=== PATIENT | male | born 1990 | race Caucasian/White ===

== ENCOUNTER 2021-12-19 14:13 | Emergency (ER) | payer MEDICAID | END 2021-12-19 18:44 | disposition left against medical advice (07) | LOC: ER 14:14 | DX: M54.9 Dorsalgia, unspecified (principal); Z53.21 Procedure and treatment not carried out due to patient leaving prior to being seen by health care provider ==

== ENCOUNTER 2022-09-09 11:24 | Emergency (ER) | payer MEDICAID, OTHER ==
[~2022-09-09] VITALS: Ht 180.3 cm; Wt 61.4 kg
[2022-09-09 11:26] VITALS: BP 110/79
[2022-09-09 12:22] LABS: CLARITY,URINE CLEAR (Clear); COLOR,URINE YELLOW (Yellow); GLUCOSE, URINE NEGATIVE (Neg); KETONES,URINE 15 mg/dl (Neg); LEUKOCYTE ESTERASE ,URINE NEGATIVE (Neg); NITRITES, URINE NEGATIVE (Neg); OCCULT BLOOD,URINE NEGATIVE (Neg); PROTEIN,URINE NEGATIVE (Neg); UROBILINOGEN,URINE 0.2 E.U/dL (0.2-1.0)
[2022-09-09 12:27] LABS: UA COLLECTION TYPE CLN CATCH MIDSTREAM
== END 2022-09-09 13:12 | disposition home or self-care (01) ==
LOC: ER 11:25
DX: N50.89 Other specified disorders of the male genital organs (principal); N50.82 Scrotal pain; F17.200 Nicotine dependence, unspecified, uncomplicated
CPT/HCPCS: 76870; 81003; 93976; 99284